=== PATIENT | male | born 2000 | race Caucasian/White ===

== ENCOUNTER 2022-03-22 01:01 | Emergency (ER) | payer OTHER ==
[2022-03-22 01:21] VITALS: BP 121/80
--- NOTE | 2022-03-22 01:25 | ED Physician Documentation ---
History of Present Illness - Stated complaint Stated Complaint: COUGHING BLOOD/THROAT SWELLING - Chief complaint Chief Complaint: Heent - History obtained from History obtained from: Patient - History of Present Illness Timing: How many days ago (9-10) Pain level now: 8 Improved by: no ameliorating factors Worsened by: no exacerbating factors - Additonal information Additional information: patient says he tested positive for COVID approximately 10 days ago and has had cough and sore throat since then. The cough and sore throat have been progressing in intensity over past 2-3 days and today he was coughing up small amounts of blood. He says he continues to have fevers to Tmax 101. He had been seen at [facility] 10 days ago and was prescribed ibuprofen, benzonatate, fluticasone, afrin spray, and mucinex Review of Systems Constitutional: reports: Fever, Chills, Myalgias, Sweats Throat: reports: Sore throat, Swollen tonsils Cardiac: reports: Reviewed and negative Respiratory: reports: Cough, Hemoptysis. denies: Dyspnea, Wheezing GI: denies: Nausea, Vomiting PD PAST MEDICAL HISTORY - Past Medical History Past Medical History: No - Present Medications Home Medications: Ambulatory Orders Medication Instructions Recorded Confirmed Azithromycin [Zithromax] 250 mg PO DAILY #4 tablet 03/22/22 Benzonatate [Tessalon] 100 mg PO TID 03/22/22 03/22/22 Fluticasone [Flonase] 2 spray NS DAILY 03/22/22 03/22/22 Ibuprofen [Motrin] 600 mg PO TID 03/22/22 03/22/22 Oxymetazoline HCl [Afrin] 2 spray NS DAILY 03/22/22 03/22/22 guaiFENesin [Mucinex] 1 tab PO DAILY 03/22/22 03/22/22 guaiFENesin/CODEINE [Robitussin AC] 10 ml PO Q6H PRN #100 ml 03/22/22 - Allergies Allergies/Adverse Reactions: Allergies Allergy/AdvReac Type Severity Reaction Status Date / Time No Known Drug Allergies Allergy Verified 03/22/22 01:21 - Living Situation Living Arrangement: reports: At home PD ED PE NORMAL - Vitals Vital signs reviewed: Yes - General General: Alert and oriented X 3, No acute distress, Well developed/nourished - HEENT HEENT: Moist mucous membranes - Cardiac Cardiac: RRR, No murmur - Respiratory Respiratory: No respiratory distress, Other (scattered rhonchi bilaterally) PD ED PE EXPANDED - HEENT HEENT: Pharyngeal erythema, Swollen tonsils, Tonsillar exudate Results - Vitals Vitals: Vital Signs - 24 hr 03/22/22 01:05 Temperature 37.3 C Heart Rate 91 Respiratory 18 Rate Blood Pressure 121/80 O2 Saturation 99 Oxygen O2 Source Room air - Labs Labs: Laboratory Tests 03/22/22 01:37 Group A Strep Rapid Negative - Rads (name of study) chest xray Radiology: Prelim report reviewed, See rad report PD MEDICAL DECISION MAKING - ED course Complexity details: reviewed results, re-evaluated patient, considered differential, d/w patient ED course: Rapid strep negative and no abnormalities on chest xray. Given his report of hemoptysis, worsening productive cough, and considering the significant swelling and exudate of posterior oropharynx, I think it is reasonable to cover possible developing bacterial pharyngitis/bronchitis with an antibiotic, which patient is comfortable with . He is given 10mg PO decadron for the pharyngitis and 500mg zithromax with rx for zithromax electronically submitted to his pharmacy of choice I am prescribing a short course of short-acting opioid cough medication for this patient. I have reviewed the patients [employer] and no concerning findings were noted. I have discussed that the opioids are for short term therapy only, and will not be refilled from the ED Departure - Departure Disposition: 01 Home, Self Care Clinical Impression: Bronchitis Pharyngitis Qualifiers: Pharyngitis/tonsillitis etiology: unspecified etiology Qualified Code(s): J02.9 - Acute pharyngitis, unspecified Condition: Good Instructions: ED Upper Resp Infec Abx Tx, ED Strep Pharyngitis Poss Follow-Up: [facility] [Provider Group] Prescriptions: guaiFENesin/CODEINE [Robitussin AC] 10 ml PO Q6H PRN #100 ml PRN Reason: Cough Azithromycin [Zithromax] 250 mg PO DAILY #4 tablet Comments: Prescriptions for azithromycin (antibiotic) and robitussin AC (codeine cough syrup) have been electronically submitted to the [facility] pharmacy in [place]. I am prescribing a short course of narcotic pain medication for you. These are potentially dangerous and addictive medications that should be used carefully. These medications may constipate you. Take an [id number]-[id number] stool softener (docusate) twice daily with plenty of water while taking these medications. If you go 24 hours without a bowel movement, take [id number]-[id number] miralax, per package instructions. Do not drink or drive while taking these medications. If you received narcotic or sedating medications while in the emergency department, do not drive for 24 hours. Store this medication in a safe, secure place and out of reach of children. It is a violation of federal law to give or sell this medication to another person or to use in a manner other than prescribed. The ED will not refill narcotic prescriptions, including prescriptions lost or stolen. To dispose of unwanted medications: 1. [facility] [address] in [place] has a medication drop box. They accept prescription medications (in pill form) Saturday through Saturday 9:00 a.m. to 5:00 p.m. 2. The [facility] [employer] accepts prescription medications (in pill form only) for disposal year round. Call for more information. 3. Contact the [facility] for the next [facility] sponsored prescription drug collection event. , [phone], or [phone]; Forms: Activity restrictions Discharge Date/Time: 03/22/22 03:10
[2022-03-22] MEDS ORDERED: DEXAMETHASONE 10 MG/ML VIAL PO STA (01:37)
[2022-03-22] MEDS ORDERED: CHERRY SYRUP 10 ML UDC PO ONE (01:37)
[2022-03-22 01:53] LABS: RAPID STREP SCREEN Negative (Negative)
[2022-03-22] MEDS ORDERED: AZITHROMYCIN 250 MG TABLET PO STA (03:01)
[2022-03-22] MEDS ORDERED: guaiFENesin/CODEINE 5 ML UDC PO STA (03:01)
--- NOTE | 2022-03-22 07:05 | XRAY Report ---
PROCEDURE: Chest 2 View X-Ray INDICATIONS: cough, dyspnea TECHNIQUE: 2 view(s) of the chest. COMPARISON: None. FINDINGS: Surgical changes and devices: None. Lungs and pleura: No pleural effusions or pneumothorax. Lungs are clear. Mediastinum: Mediastinal contours are normal. Heart size is normal. Bones and chest wall: No suspicious bony abnormalities. Soft tissues appear unremarkable. IMPRESSION: No acute cardiopulmonary disease. No significant discrepancy with the preliminary interpretation. Reviewed by: Yee Orozco MD on 03/22/2022 7:04 AM PDT Approved by: Yee Orozco MD on 03/22/2022 7:04 AM PDT Station ID: [id number]
--- NOTE | 2022-03-22 12:28 | ED Physician Documentation ---
ED Addendum - Addendum Addendum: 03/22/22 12:28 Took call from pharmacy, their bottle size for Robitussin-AC is 118 mL and they wanted confirmation that they could dispense that amount. I confirmed that they could.
== END 2022-03-22 03:10 | disposition home or self-care (01) ==
LOC: ED 01:01
DX: J40 Bronchitis, not specified as acute or chronic (principal); J02.9 Acute pharyngitis, unspecified
CPT/HCPCS: 71046; 87070; 87430; 99282; 99284; A9270